=== PATIENT | male | born 1940 ===

== ENCOUNTER 2020-04-06 07:23 | Outpatient (CLI) | payer MEDICARE, BC ==
--- NOTE | 2020-04-06 11:03 | ULT ---
GALLBLADDER ULTRASOUND: Date: 04/06/2020 HISTORY: Elevated liver function tests. FINDINGS: Real-time imaging of the right upper quadrant shows a normal appearing gallbladder. The common duct i s 4.0 mm. Liver shows a heterogeneous increased echogenicity consistent with fatty change. There is a 2.2 cm left lobe liver cyst and a second smaller 1.5 cm cyst. There appear to be some other smaller liver cysts present within the right lobe. Technologist reports a negative ultrasound Crain's sign. Right kidney is normal in size and not obstructed. The pancreas is obscured. IMPRESSION: 1. Diffuse fatty change of the liver which measures 17.0 cm in length. 2. Incidental note is made of small hepatic cysts. POS: [facility]
== END 2020-04-06 07:24 | disposition home or self-care (01) ==
LOC: SCSULT 07:23
PROVIDERS: ATTEND Family Medicine
DX: R74.0 Nonspecific elevation of levels of transaminase and lactic acid dehydrogenase [LDH] (principal); K76.0 Fatty (change of) liver, not elsewhere classified; K76.89 Other specified diseases of liver
CPT/HCPCS: 76705